=== PATIENT | male | born 1975 | race Two or more races ===

== ENCOUNTER 2017-04-05 19:49 | Emergency (ER) | payer MEDICAID ==
[~2017-04-05] VITALS: Ht 175.3 cm; Wt 70.3 kg
[2017-04-05 20:01] VITALS: BP 120/69
== END 2017-04-05 20:39 | disposition home or self-care (01) ==
LOC: ER 19:49
DX: K04.7 Periapical abscess without sinus (principal); M27.3 Alveolitis of jaws; F17.210 Nicotine dependence, cigarettes, uncomplicated
CPT/HCPCS: 99283; A4606; Z7610

== ENCOUNTER 2018-05-14 19:16 | Emergency (ER) | payer BC, OTHER ==
[~2018-05-14] VITALS: Ht 175.3 cm; Wt 68.0 kg
[2018-05-14 19:25] VITALS: BP 128/79
== END 2018-05-14 21:33 | disposition home or self-care (01) ==
LOC: ER 19:19
DX: S62.522A Displaced fracture of distal phalanx of left thumb, initial encounter for closed fracture (principal); F17.200 Nicotine dependence, unspecified, uncomplicated; Z88.0 Allergy status to penicillin; V11.9XXA Unspecified pedal cyclist injured in collision with other pedal cycle in traffic accident, initial encounter; Y93.89 Activity, other specified; Y92.89 Other specified places as the place of occurrence of the external cause; Y99.8 Other external cause status
CPT/HCPCS: 29125; 73140; 99284; A4606; Z7610